=== PATIENT | female | born 1965 | race Caucasian/White ===

== ENCOUNTER 2017-05-06 13:02 | Emergency (ER) | payer OTHER ==
[2017-05-06 13:24] VITALS: BP 129/77; PULSE 67; TEMP 98.3; BMI 27.1
[2017-05-06] MEDS ORDERED: ALBUTEROL SO4 2.5/IPRATROPIUM 0.5 INH SOL 3 ML VIAL.NEB. NEB ONE (14:01)
--- NOTE | 2017-05-06 14:18 | PDOC ---
History of Present Illness - General Chief Complaint: Respiratory Stated Complaint: FLU LIKE SYMPTOMS Time Seen by Provider: 05/06/17 13:38 - History of Present Illness Initial Comments: 05/06/17 14:06 CHIEF COMPLAINT: flu symptoms HISTORY OF PRESENT ILLNESS: 52 yo F with no PMH presents to [facility] with cough and generalized malaise for 5 days. Patient reports feeling feverish but states she did not take her temperature. She reports taking over the counter medicine that she bought at the pharmacy "and some antibiotics that I had but I finished them." She denies nausea, vomiting, diarrhea. PAST MEDICAL HISTORY: Denies past medical history FAMILY HISTORY: Denies SOCIAL HISTORY: Denies tobacco, alcohol, illicit drug use. SURGICAL HISTORY: Denies ALLERGIES: ibuprofen REVIEW OF SYSTEMS as per HPI PHYSICAL EXAM General Appearance: Well-appearing, appropriately dressed. No apparent distress. HEENT: Dry persistent cough. Erythematous oropharynx. EOMI, PERRLA, normal ENT inspection, normal voice, TMs normal, pharynx normal. No conjunctival pallor. No photophobia, scleral icterus. Respiratory/Chest: Lungs CTAB. No shortness of breath, chest tenderness, respiratory distress, accessory muscle use. No crackles, rales, rhonchi, stridor , wheezing, dullness Cardiovascular: RRR. S1, S2. Gastrointestinal/Abdominal: Normal bowel sounds. Abdomen soft, non-distended. No tenderness or rebound tenderness. No organomegaly, pulsatile mass, guarding , hernia, hepatomegaly, splenomegaly. Lymphatic: No adenopathy, tenderness. Musculoskeletal/Extremities: Normal inspection. FROM of all extremities, normal capillary refill. Pelvis Stable. No CVA tenderness. No tenderness to extremities, pedal edema, swelling, erythema or deformity. Integumentary: Appropriate color, dry, warm. No cyanosis, erythema, jaundice or rash Neurologic: group burner machine II-XII intact. Fully oriented, alert. Appropriate mood/affect. Motor strength 5/5. No appreciable EOM palsy, facial droop or sensory deficit. Past History - Past Medical History Allergies/Adverse Reactions: Allergies Allergy/AdvReac Type Severity Reaction Status Date / Time ibuprofen [From Motrin] Allergy Mild Rash Verified 05/06/17 13:23 Home Medications: Ambulatory Orders Albuterol Sulfate Inhaler - [Ventolin Hfa Inhaler -] 1 - 2 inh PO Q4H 05/06/17 Azithromycin [Zithromax 250mg Tablets -] 250 mg PO UTDICT #6 tab 05/06/17 Benzonatate [Tessalon Pearls -] 100 mg PO TID PRN #21 capsule 05/06/17 COPD: No Hypercholesterolemia: Yes - Surgical History Abdominal Surgery: Yes (simba engle) - Immunization History Immunization Up to Date: Yes - Suicide/Smoking/Psychosocial Hx Smoking Status: No Smoking History: Never smoked Have you smoked in the past 12 months: No Number of Cigarettes Smoked Daily: 0 Hx Alcohol Use: No Drug/Substance Use Hx: No Substance Use Type: None *Physical Exam - Vital Signs Last Vital Signs Temp Pulse Resp BP Pulse Ox 98.3 F 67 20 129/77 99 05/06/17 13:21 05/06/17 13:21 05/06/17 13:21 05/06/17 13:21 05/06/17 13:21 Medical Decision Making - Medical Decision Making 05/06/17 14:18 52 yo F with no PMH presents to [facility] with cough and generalized malaise for 5 days. -flu swab -duoneb *DC/Admit/Observation/Transfer Diagnosis at time of Disposition: Bronchitis - Discharge Dispostion Disposition: HOME Condition at time of disposition: Stable Admit: No - Prescriptions Prescriptions: Azithromycin [Zithromax 250mg Tablets -] 250 mg PO UTDICT #6 tab Benzonatate [Tessalon Pearls -] 100 mg PO TID PRN #21 capsule PRN Reason: Cough - Referrals Referrals: Jalen Branch [Primary Care Provider] - - Patient Instructions Printed Discharge Instructions: DI for Acute Bronchitis Additional Instructions: Please take medications as prescribed. Follow up with your primary care doctor if symptoms persist past 3-5 days. If you develop fever unrelieved by Motrin or Tylenol, vomiting, diarrhea, or any new or worsening symptoms, please return to the ER. - Post Discharge Activity
[2017-05-06] MEDS ORDERED: MECLIZINE HCL 25 MG TABLET (FP) PO ONE (14:39)
[2017-05-06] MEDS ORDERED: MECLIZINE HCL 25 MG TABLET (FP) ONE (14:43)
== END 2017-05-06 14:56 | disposition home or self-care (01) ==
LOC: JERFT 13:02
PROC: 3E0F7GC Introduction of Other Therapeutic Substance into Respiratory Tract, Via Natural or Artificial Opening (ICD-10-PCS; principal; 2017-05-06)
DX: J40 Bronchitis, not specified as acute or chronic (principal)
CPT/HCPCS: 87804; 94640; 99281-25

== ENCOUNTER 2018-05-11 19:11 | Emergency (ER) | payer OTHER ==
[2018-05-11 19:15] VITALS: BP 135/53; PULSE 60; TEMP 98; BMI 27.1
--- NOTE | 2018-05-11 20:20 | PDOC ---
*Physical Exam - Vital Signs Last Vital Signs Temp Pulse Resp BP Pulse Ox 98.0 F 60 18 135/53 L 99 05/11/18 19:12 05/11/18 19:12 05/11/18 19:12 05/11/18 19:12 05/11/18 19:12 Medical Decision Making - Medical Decision Making 05/11/18 20:20 53 yo F recently diagnosed with sinusitis On Augmentin and Flonase pt reports facial pain and headache Pt seen by Midlevel Provider under my direct supervision Pt interviewed and examined Ancillary studies reviewed I agree with plan as outlined by Midlevel Provider *DC/Admit/Observation/Transfer - Referrals Referrals: Jalen Branch [Primary Care Provider] - - Patient Instructions - Post Discharge Activity
[2018-05-11] MEDS ORDERED: guaiFENesin 200 MG/10 ML 10 ML UNIT-DOSE CUPS PO ONE (21:10)
[2018-05-11] MEDS ORDERED: ALBUTEROL SO4 2.5/IPRATROPIUM 0.5 INH SOL 3 ML VIAL.NEB. NEB ONE ×3 (21:10→22:09)
--- NOTE | 2018-05-11 21:10 | PDOC ---
History of Present Illness - General Chief Complaint: Cold Symptoms Stated Complaint: COLD SYMPTOMS Time Seen by Provider: 05/11/18 20:18 Past History - Past Medical History Allergies/Adverse Reactions: Allergies Allergy/AdvReac Type Severity Reaction Status Date / Time ibuprofen [From Motrin] Allergy Mild Rash Verified 05/11/18 19:15 Home Medications: Ambulatory Orders Albuterol Sulfate Inhaler - [Ventolin Hfa Inhaler -] 1 - 2 inh PO Q4H 05/06/17 Benzonatate [Tessalon Pearls -] 100 mg PO TID PRN #21 capsule 05/06/17 Albuterol Sulfate Inhaler - [Ventolin HFA Inhaler -] 1 - 2 inh PO Q4H #1 inhaler 05/11/18 Guaifenesin AC [Robitussin AC] 10 ml PO HS #100 ml MDD 1 05/11/18 COPD: No Hypercholesterolemia: Yes - Surgical History Abdominal Surgery: Yes (tummy tuck,hysterectomy) - Immunization History Immunization Up to Date: Yes - Suicide/Smoking/Psychosocial Hx Smoking Status: No Smoking History: Never smoked Have you smoked in the past 12 months: No Number of Cigarettes Smoked Daily: 0 Hx Alcohol Use: No Drug/Substance Use Hx: No Substance Use Type: None *Physical Exam - Vital Signs Last Vital Signs Temp Pulse Resp BP Pulse Ox 98.0 F 60 18 135/53 L 99 05/11/18 19:12 05/11/18 19:12 05/11/18 19:12 05/11/18 19:12 05/11/18 19:12 Moderate Sedation - Procedure Monitoring Vital Signs: Procedure Monitoring Vital Signs Temperature 98.0 F 05/11/18 19:12 Pulse Rate 60 05/11/18 19:12 Respiratory Rate 18 05/11/18 19:12 Blood Pressure 135/53 L 05/11/18 19:12 O2 Sat by Pulse Oximetry (%) 99 05/11/18 19:12 *DC/Admit/Observation/Transfer Diagnosis at time of Disposition: Bronchitis Sinusitis Qualifiers: Sinusitis location: maxillary Chronicity: acute Recurrence: non-recurrent Qualified Code(s): J01.00 - Acute maxillary sinusitis, unspecified - Discharge Dispostion Disposition: HOME Condition at time of disposition: Stable Decision to Admit order: No - Referrals Referrals: Jalen Branch [Primary Care Provider] - - Patient Instructions Printed Discharge Instructions: DI for Sinusitis Additional Instructions: You have a sinus infection. The dripping from the sinus infection is causing your cough Take the Augmentin as previously prescribed by your doctor. Finish the entire dose even if you feel better Continue taking the prednisone as prescribed You may use the albuterol inhaler every 4 hours as needed for cough You may take the cough syrup before bed. Do not drink or drive after taking this medication as it may make you sleepy you may take motrin 600mg every 6 hours as needed for pain or fever Follow up with your primary care provider this week Return to the ED for any new or worsening symptoms Usted tiene shania infeccin sinusal. El goteo de la infeccin sinusal est causando rowley tos [place] el Augmentin segn lo prescrito previamente por rowley mdico. Termine la dosis completa incluso si se siente mejor. Continuar tomando la prednisona segn lo prescrito. Puede usar el inhalador de albuterol cada 4 horas segn sea necesario para la tos Puede keven el jarabe para la tos antes de acostarse. No dean ni maneje despus de keven jeremy medicamento, ya que puede causarle sueo Puede keven Motrin 600 mg cada 6 horas segn sea necesario para el dolor o la fiebre. Tashia un seguimiento con rowley proveedor de atencin primaria esta semana Regrese a la elie de emergencias para cualquier sntoma nuevo o que empeore. - Post Discharge Activity Forms/Work/School Notes: Back to Work
[2018-05-11] MEDS ORDERED: guaiFENesin 200 MG/10 ML 10 ML UNIT-DOSE CUPS ONE (21:39)
== END 2018-05-11 23:35 | disposition home or self-care (01) ==
LOC: JERFT 19:11 → JER 19:11
PROC: 3E0F7GC Introduction of Other Therapeutic Substance into Respiratory Tract, Via Natural or Artificial Opening (ICD-10-PCS; principal; 2018-05-11)
PROC: 3E0F7GC Introduction of Other Therapeutic Substance into Respiratory Tract, Via Natural or Artificial Opening (ICD-10-PCS; 2018-05-11)
DX: J01.00 Acute maxillary sinusitis, unspecified (principal); J40 Bronchitis, not specified as acute or chronic
CPT/HCPCS: 94640; 99281-25

== ENCOUNTER 2021-05-07 11:49 | Emergency (ER) | payer OTHER ==
[2021-05-07 12:07] VITALS: TEMP 98; BMI 28.3
[2021-05-07] MEDS ORDERED: KETOROLAC TROMETHAMINE 30 MG/1 ML VIAL IM ONE (14:40)
[2021-05-07] MEDS ORDERED: ACETAMINOPHEN 325 MG TABLET (FP) PO ONE (14:40)
[2021-05-07] MEDS ORDERED: ACETAMINOPHEN 325 MG TABLET (FP) ONE (14:46)
[2021-05-07] MEDS ORDERED: KETOROLAC TROMETHAMINE 30 MG/1 ML VIAL ONE (14:46)
[2021-05-07 16:21] VITALS: BP 121/78; PULSE 85
== END 2021-05-07 16:25 | disposition home or self-care (01) ==
LOC: JER 11:49
PROC: 3E0233Z Introduction of Anti-inflammatory into Muscle, Percutaneous Approach (ICD-10-PCS; principal; 2021-05-07)
DX: M54.6 Pain in thoracic spine (principal)
CPT/HCPCS: 71045-TC-FY; 96372; 99284-25

== ENCOUNTER 2022-01-04 11:13 | Emergency (ER) | payer OTHER ==
[2022-01-04 11:43] VITALS: PULSE 74; RESP 18; BMI 30.7
[2022-01-04 14:47] LABS: BASO % 0.6 % (0-2.0); HEMATOCRIT 39.9 % (32.4-45.2); HEMOGLOBIN 13.1 GM/dL (10.7-15.3); MCH 30.7 pg (25.7-33.7); MCHC 32.9 g/dl (32.0-36.0); MEAN CELL VOLUME 93.3 fl (80-96); MEAN PLT VOLUME 9.5 fl (7.5-11.1); MONO % 10.4 % (3.8-10.2); PLATELET COUNT 256 10^3/uL (134-434); RBC 4.28 M/mm3 (3.60-5.2); RDW 12.6 % (11.6-15.6); WHITE BLOOD COUNT 4.5 K/mm3 (4.0-10.0)
[2022-01-04 15:04] LABS: CHLORIDE 106 mmol/L (98-107); INR 1.07 (0.83-1.09); PROTHROMBIN TIME (PATIENT) 12.3 SEC (9.7-13.0); SODIUM 143 mmol/L (136-145)
[2022-01-04 15:06] LABS: CALCIUM 8.9 mg/dL (8.5-10.1)
[2022-01-04 15:07] LABS: ALBUMIN 3.5 g/dl (3.4-5.0); ANION GAP 9 MMOL/L (8-16); BLOOD UREA NITROGEN 10.8 mg/dL (7-18); CO2 28 mmol/L (21-32); GLUCOSE,RANDOM 78 mg/dL (74-106); LIPASE 216 U/L (73-393)
[2022-01-04 15:10] LABS: CREATININE 0.9 mg/dL (0.55-1.3); SGOT/AST 28 U/L (15-37); SGPT/ALT 25 U/L (13-61)
[2022-01-04 15:11] LABS: BILIRUBIN,TOTAL 0.2 mg/dL (0.2-1)
[2022-01-04 15:12] LABS: TOT PROT 7.3 g/dl (6.4-8.2)
[2022-01-04 15:14] LABS: ALK PHOS 91 U/L (45-117)
[2022-01-04 15:15] LABS: N-TERMINAL BNP 24.9 pg/ml (5-125)
[2022-01-04] MEDS ORDERED: SODIUM CHLORIDE 0.9% 500 ML INFUS.BAG IV ONE ×2 (15:29→17:54)
[2022-01-04] MEDS ORDERED: FAMOTIDINE 20 MG/50 ML IVPB 20 MG/50 ML MG IVPB ONE ×2 (15:29→16:27)
[2022-01-04] MEDS ORDERED: ACETAMINOPHEN 1000 MG/100 ML BAG IVPB ONE (15:29)
[2022-01-04] MEDS ORDERED: MAG HYDROX/AL HYDROX/SIMETH 30 ML UNIT-DOSE CUP PO ONE (15:30)
[2022-01-04] MEDS ORDERED: ACETAMINOPHEN INJECTION 100 ML IVPB ONE (16:27)
[2022-01-04] MEDS ORDERED: MAG HYDROX/AL HYDROX/SIMETH 30 ML UNIT-DOSE CUP ONE (16:27)
[2022-01-04 16:52] VITALS: BP 115/64; TEMP 98.4
[2022-01-04] MEDS ORDERED: ONDANSETRON 4 MG/2 ML VIAL IVPUSH ONE (17:54)
== END 2022-01-04 21:33 | disposition home or self-care (01) ==
LOC: JER 11:13
PROC: 3E033NZ Introduction of Analgesics, Hypnotics, Sedatives into Peripheral Vein, Percutaneous Approach (ICD-10-PCS; principal; 2022-01-04)
DX: R10.9 Unspecified abdominal pain (principal); M54.9 Dorsalgia, unspecified
CPT/HCPCS: 0241U-QW; 36415; 71046-TC-FY; 74177-TC; 76705-TC; 80053; 83690; 83880; 84443; 84484; 84703; 85025; 85610; 93005; 93010; 96374; 99285-25; Q9967

== ENCOUNTER 2023-03-01 17:17 | Emergency (ER) | payer OTHER ==
[2023-03-01 17:30] VITALS: BP 126/79; PULSE 67; RESP 18; TEMP 98.3; BMI 29.2
== END 2023-03-01 18:01 | disposition home or self-care (01) ==
LOC: JER 17:17 → JERFT 17:17
DX: Z48.02 Encounter for removal of sutures (principal)
CPT/HCPCS: 99281-25

== ENCOUNTER 2025-01-19 14:49 | Emergency (ER) | payer OTHER ==
[2025-01-19 15:03] VITALS: BP 121/62; PULSE 64; RESP 18; TEMP 98.3; BMI 27.6
[2025-01-19] MEDS: METOCLOPRAMIDE HCL INJECTION 10 MG/2 ML VIAL IVPUSH ONE (15:50)
[2025-01-19] MEDS ORDERED: METOCLOPRAMIDE HCL INJECTION 10 MG/2 ML VIAL ONE (15:52)
[2025-01-19] MEDS ORDERED: ACETAMINOPHEN INJECTION 100 ML ONE (15:52)
[2025-01-19] MEDS: ACETAMINOPHEN 1000 MG/100 ML BAG IVPB ONE (16:05)
[2025-01-19] MEDS: SODIUM CHLORIDE 0.9% 500 ML INFUS.BAG IV ONE (16:05)
[2025-01-19] MEDS: METOCLOPRAMIDE HCL INJECTION 10 MG/2 ML VIAL IVPB ONE (16:31)
[2025-01-19 16:32] LABS: ABSOLUTE IMMATURE GRANULOCYTES 0.01 x10^3/uL (0.0-0.031); BASOPHILS # 0.02 x10^3/uL (0.01-0.08); EOSINOPHIL % 1.8 % (0.7-5.8); EOSINOPHILS # 0.10 x10^3/uL (0.04-0.36); MCHC 31.9 g/dl (32.2-35.5); MEAN CELL VOLUME 95.5 fl (79.4-94.8); MEAN PLT VOLUME 10.4 fl (9.4-12.3); MONOCYTE # 0.41 x10^3/uL (0.24-0.86); MONOCYTE % 7.3 % (4.7-12.5); RDW 12.5 % (12.3-16.6)
[2025-01-19 16:39] LABS: INR 0.98 (0.83-1.09); PROTHROMBIN TIME (PATIENT) 10.7 SEC (9.7-13.0)
[2025-01-19 16:42] LABS: ACTIVATED PTT 29.7 SECONDS (25.2-36.5)
[2025-01-19 16:55] LABS: GLUCOSE,RANDOM 103.0 mg/dL (74-106); TOT PROT 7.3 g/dl (6.4-8.2)
[2025-01-19 16:56] LABS: CO2 31.0 mmol/L (21-32)
[2025-01-19 16:58] LABS: ALK PHOS 72.0 U/L (40-150)
[2025-01-19 17:00] LABS: SGPT/ALT 27.0 U/L (0-55)
[2025-01-19 17:01] LABS: CREATININE 0.83 mg/dL (0.55-1.3); SGOT/AST 44.0 U/L (5-34)
[2025-01-19 17:23] LABS: HCV DIAGNOSTIC IN-HOUSE W/RFLX NON-REACTIVE (NONREACTIVE); HIV INTERPRETATION NEGATIVE (NEGATIVE)
== END 2025-01-19 19:40 | disposition home or self-care (01) ==
LOC: JER 14:49
PROC: 3E033NZ Introduction of Analgesics, Hypnotics, Sedatives into Peripheral Vein, Percutaneous Approach (ICD-10-PCS; principal; 2025-01-19)
PROC: 3E033GC Introduction of Other Therapeutic Substance into Peripheral Vein, Percutaneous Approach (ICD-10-PCS; 2025-01-19)
DX: G43.909 Migraine, unspecified, not intractable, without status migrainosus (principal); R20.0 Anesthesia of skin; R20.2 Paresthesia of skin; H53.8 Other visual disturbances; R11.0 Nausea
CPT/HCPCS: 36415; 70450-TC; 70496-TC; 70498-TC; 80053; 83735; 85025; 85610; 85730; 86803; 87389; 93005; 93010; 99285-25; Q9967